=== PATIENT | male | born 1965 ===

== ENCOUNTER → 2019-04-20 07:36 | Day surgery (SDC) | payer OTHER ==
[~2019-04-20 07:36] MED LIST: Buffered Lidocaine 1% SYRIN* 1 ML/SYRINGE INTRADERM ONE; Bupivacaine 0.5% W/EPI SDV* 10 ML VIAL INJ ONE; Bupivacaine 0.5%* 50 ML MDV VIAL ONE; Clindamycin 900 MG/D5W BAG(*) 900 MG/50 ML BAG IVPB ONE; Dexamethasone IV* 4 MG/ML 1 ML (4 MG) IV SLOW PU ONE; Dexamethasone IV* 4 MG/ML 1 ML (4 MG) ONE; Famotidine IV* 10 MG/ML 2 ML (20 mg) IV ONE; Ketorolac INJ* 30 MG/ML 1 ML VIAL ONE; Lactated Ringers 1000 ML Bag* 1,000 ML IV SCH; Lidocaine 1% INJ* 10 MG/ML 30 ML SDV ONE; Lidocaine 2% PF * 5 ML VIAL ONE; Midazolam* 1 MG/ML 5 ML VIAL (5 MG) ONE; Naloxone* 0.4 MG/ML 1 ML VIAL IV PRN; Ondansetron INJ* 2 MG/ML VIAL ONE; Propofol* 10 MG/ML 20 ML BTL ONE; Sodium Citrate/Citric Acid* 15 ML UDC ONE; Sodium Citrate/Citric Acid* 15 ML UDC PO ONE; fentaNYL* 50 MCG/ML 2 ML VIAL (100 MCG VIAL) ONE
--- NOTE | 2019-04-20 10:42 | OP ---
Operative Report - Blank - Operative Report Date of Operation: 04/20/19 Note: Brief Operative Note Preop Dx: Umbilical Hernia Postop Dx: same Procedure: open repair umbilical hernia w/ mesh Anesthesia: Gen (LMA) Surgeon: Svetlana Food Product Inspector: ONEIL Paz Fluids: 1300 ml RL EBL: < 50 ml Specimen: none Drains: none Findings: as above Complications: none
[2019-04-20 11:40] VITALS: BP 118/79
--- NOTE | 2019-04-20 12:26 | OP ---
CC: Dr. Aurelio Albar[place], [place]* OPERATIVE REPORT: DATE OF OPERATION: 04/20/19 - [facility] DATE OF : 67 SURGEON: Gilberto Mota MD. SIZE STAMPER: ONEIL Freeman. ANESTHESIOLOGIST: Markie Cruz DO. ANESTHESIA: General. PRE-OP DIAGNOSIS: Umbilical hernia. POST-OP DIAGNOSIS: Umbilical hernia. OPERATIVE PROCEDURE: Open umbilical hernia repair with mesh. ESTIMATED BLOOD LOSS: Less than 50 mL. IV FLUIDS: 1.3 L crystalloid. SPECIMEN: None. DRAINS: None. COMPLICATIONS: None. COUNTS: Instrument, needle, and sponge count correct. DESCRIPTION OF PROCEDURE: The patient was brought to the operating room and placed on the table supine. Sequential compression devices were placed on both lower extremities. Intravenous antibiotics were administered. He was administered intravenous sedation, prepped and draped in the usual sterile fashion. Time-out was performed. Local anesthetic was infiltrated periumbilically as a field block. A curvilinear infraumbilical incision was created and subcutaneous tissues were divided using a combination of sharp and blunt dissection cautery. Large fatty mass was noted within the subcutaneous tissues. This appeared to be preperitoneal fat associated with a hernia sac. This was reduced. The umbilical hernia defect was identified. It was about 3 cm across. In order to complete the repair, the patient was placed under general anesthesia by Dr. Cruz. The preperitoneal space was developed using a combination of cautery and blunt dissection. The repair was then performed using the Bard Ventrio mesh using a large size patch. This was positioned in the preperitoneal space and then sutured to the superior and inferior leaflet of the fascia with 0 Ethibond suture. The mesh was inspected to be sure that it was lying well positioned beneath the defect and then the defect was closed with interrupted # 1 Ethibond in [id number] fashion. The umbilical stalk was reapproximated to the anterior abdominal wall with a 3-0 Vicryl, then skin was closed in 2 layers with 3-0 Vicryl for the subcu and 4-0 Monocryl for the skin edge in a subcuticular fashion. DermaFLEX was applied with the dressing. The patient tolerated the procedure well, was extubated, and transferred to Recovery in stable condition. [id number]/[facility] #: [id number] [facility]
== END | disposition home or self-care (01) ==
LOC: OR 07:36
PROVIDERS: ATTEND Surgery
DX: K42.9 Umbilical hernia without obstruction or gangrene (principal); Z88.0 Allergy status to penicillin
CPT/HCPCS: A9270-GY; J1100; J1885; J2250; J2405; J2704; J3010; J3490